=== PATIENT | male | born 1940 | race Caucasian/White ===

== ENCOUNTER 2021-09-26 09:58 | Day surgery (SDC) | payer MEDICARE, OTHER ==
[2021-09-26] VITALS (10 sets, daily range): BP systolic 98–135; BP diastolic 50–70
[~2021-09-26] VITALS: Ht 170.2 cm; Wt 76.7 kg
[~2021-09-26 09:58] MED LIST: AMLO2.5T2 PO; ASPI-611 PO; ATOR80TA PO; BENA10TA74 PO; CLOP75TA34 PO
[2021-09-26] MEDS ORDERED: LORazepam 0.5 MG tablet PO PRN (10:25)
[2021-09-26] MEDS ORDERED: normal saline 1,000 ML IV SCH (10:25)
[2021-09-26] MEDS ORDERED: diphenhydrAMINE 25mg capsule PO PRN (10:25)
[2021-09-26] MEDS ORDERED: LIDOcaine/PRILOcaine 5gm cream TP ONE (12:00)
[2021-09-26] MEDS ORDERED: LIDOcaine 1% (10mg/ml)w/preservative injection 20ml MDV ONE (12:03)
[2021-09-26] MEDS ORDERED: midazolam 1 mg/ML 2ml injection ONE (12:03)
[2021-09-26] MEDS ORDERED: fentaNYL/PF 50MCG/1 ML 2ML syringe ONE (12:03)
[2021-09-26] MEDS ORDERED: verapamil 2.5 mg/ml inj IV ONE (12:03)
[2021-09-26] MEDS ORDERED: nitroGLYCERIN-Tridil 50MG/D5W 250 ML IV ONE (12:04)
[2021-09-26] MEDS ORDERED: heparin 1,000unit/ml 10ml vial 10 ML ONE (12:04)
[2021-09-26] MEDS ORDERED: iohexol 350MG/ML 100ml bottle IV ONE (12:04)
[2021-09-26] MEDS ORDERED: ondansetron/PF 4mg/2ml inj IV PRN (13:30)
[2021-09-26] MEDS ORDERED: OXAZEpam 15mg capsule PO PRN (13:35)
[2021-09-26] MEDS ORDERED: HYDROcodone/acetaminophen 5mg/325mg tablet PO PRN (13:35)
[2021-09-26] MEDS ORDERED: proCHLORperazine 10 MG/2 ml inj IV PRN (13:35)
[2021-09-26] MEDS ORDERED: HYDROcodone/acetaminophen 10/325mg tab PO PRN (13:35)
== END 2021-09-26 16:30 | disposition home or self-care (01) ==
LOC: SSTAY O 09:58
PROVIDERS: ATTEND Internal Medicine Interventional Cardiology
DX: I35.0 Nonrheumatic aortic (valve) stenosis (principal); I25.10 Atherosclerotic heart disease of native coronary artery without angina pectoris; I10 Essential (primary) hypertension; E78.5 Hyperlipidemia, unspecified; Z95.5 Presence of coronary angioplasty implant and graft; Z95.0 Presence of cardiac pacemaker; Z79.82 Long term (current) use of aspirin; Z79.899 Other long term (current) drug therapy; Z87.891 Personal history of nicotine dependence
CPT/HCPCS: 93005; 93454; 99152; C1769; C1894; J1644; J2001; J2250; J3010; J7030; Q0163; Q9967; A4620; A5120; J3490

== ENCOUNTER 2021-11-24 09:49 | Outpatient (CLI) | payer MEDICARE, OTHER ==
[~2021-11-24 09:49] MED LIST changes: -CLOP75TA34 PO
[2021-11-24 11:15] LABS: BASOPHILS % (AUTO) 0.5 % (0-1); EOSINOPHILS # (AUTO) 0.1 X10'3 (0-0.9); EOSINOPHILS % (AUTO) 1.1 % (0-6); HEMATOCRIT 38.4 % (42.0-52.0); HEMOGLOBIN 13.3 g/dl (14.0-17.9); MEAN CORPUSCULAR HEMOGLOBIN 32.2 PG (27.0-31.0); MEAN CORPUSCULAR HGB CONC 34.5 g/dL (33.0-36.5); MEAN CORPUSCULAR VOLUME 93.3 FL (78-98); MEAN PLATELET VOLUME 9.1 FL (7.4-10.4); MONOCYTES # (AUTO) 0.4 X10'3 (0-0.9); MONOCYTES % (AUTO) 7.8 % (2-12); NEUTROPHILS # (AUTO) 3.6 X10'3 (1.8-7.7); NEUTROPHILS % (AUTO) 71.6 % (42-75); PLATELET COUNT 223 X10'3 (140-440); RED BLOOD COUNT 4.12 X10'6 (4.70-6.10); RED CELL DISTRIBUTION WIDTH 13.2 % (11.5-14.5); WHITE BLOOD COUNT 5.1 X10'3 (4.5-11.0)
[2021-11-24 11:22] LABS: APTT 27 SECONDS (22-32)
[2021-11-24] MEDS ORDERED: IODIXANOL 320 MG/ML INFUS..BTL 100ML IV ONE (11:27)
[2021-11-24] MEDS ORDERED: IODIXANOL 320 MG/ML INFUS..BTL 50ML IV ONE (11:27)
[2021-11-24 11:31] LABS: ALANINE AMINOTRANSFERASE 28 U/L (12-78); ALBUMIN 3.9 G/DL (3.4-5.0); ALBUMIN/GLOBULIN RATIO 1.1 (1.1-1.5); ALKALINE PHOSPHATASE 59 IU/L (46-116); ANION GAP 6 (8-16); ASPARTATE AMINO TRANSFERASE 21 U/L (10-37); BILIRUBIN,TOTAL 0.6 MG/DL (0.1-1.0); BLOOD UREA NITROGEN 25 MG/DL (7-18); BUN/CREATININE RATIO 28.7 (5.4-32.0); CALCIUM 8.8 MG/DL (8.5-10.1); CHLORIDE 107 MMOL/L (99-107); CREATININE 0.87 MG/DL (0.60-1.10); GLUCOSE 109 MG/DL (70-104); POTASSIUM 4.2 MMOL/L (3.5-5.1); SODIUM 140 MMOL/L (135-145); TOTAL CARBON DIOXIDE 26.7 MMOL/L (24-32); TOTAL PROTEIN 7.3 G/DL (6.4-8.2); eGFR 84 ML/MIN
== END 2021-11-24 23:59 | disposition home or self-care (01) ==
LOC: RAD 09:49
PROVIDERS: ATTEND Internal Medicine Cardiovascular Disease
DX: I35.0 Nonrheumatic aortic (valve) stenosis (principal); I25.10 Atherosclerotic heart disease of native coronary artery without angina pectoris; K44.9 Diaphragmatic hernia without obstruction or gangrene; K57.30 Diverticulosis of large intestine without perforation or abscess without bleeding; K57.10 Diverticulosis of small intestine without perforation or abscess without bleeding; I65.29 Occlusion and stenosis of unspecified carotid artery; I70.0 Atherosclerosis of aorta; J98.11 Atelectasis; J98.4 Other disorders of lung; M47.816 Spondylosis without myelopathy or radiculopathy, lumbar region; M85.88 Other specified disorders of bone density and structure, other site; Z20.822 Contact with and (suspected) exposure to COVID-19
CPT/HCPCS: 36415; 71046; 71275; 74174; 80053; 85025; 85610; 85730; 87635; 94010; 94727; 94729; C9803; Q9967

== ENCOUNTER 2023-07-16 11:27 | Day surgery (SDC) | payer MEDICARE, OTHER ==
[2023-07-16] VITALS (9 sets, daily range): BP systolic 101–154; BP diastolic 50–67; PULSE 60–69; RESP 12–15; TEMP 98.7; O2SAT 93–98
[~2023-07-16] VITALS: Ht 170.2 cm; Wt 79.9 kg
[~2023-07-16 11:27] MED LIST changes: +LIDOcaine 1% (10mg/ml) 2ml vial ONE; +heparin 1,000unit/ml 10ml vial 10 ML ONE; +iohexol 350MG/ML 100ml bottle IV ONE; +nitroGLYCERIN 500mcg/5mL D5W 5 ML IV ONE; +verapamil 2.5 mg/ml inj IV ONE
[2023-07-16] MEDS ORDERED: midazolam 1 mg/ML 2ml injection ONE (11:40)
[2023-07-16] MEDS ORDERED: fentaNYL/PF 50MCG/1 ML 2ML syringe ONE (11:41)
[2023-07-16] MEDS ORDERED: LORazepam 0.5 MG tablet PO PRN (11:45)
[2023-07-16] MEDS ORDERED: normal saline 1,000 ML IV SCH (11:45)
[2023-07-16] MEDS ORDERED: diphenhydrAMINE 25mg capsule PO PRN (11:45)
[2023-07-16] MEDS ORDERED: LIDOcaine 1% (10mg/ml) 2ml vial ONE (11:57)
[2023-07-16] MEDS ORDERED: HYDROcodone/acetaminophen 10/325mg tab PO PRN (14:15)
[2023-07-16] MEDS ORDERED: HYDROcodone/acetaminophen 5mg/325mg tablet PO PRN (14:15)
[2023-07-16 15:18] LABS: ISTAT HGB ART 10.9 g/dl (14.0-17.9); ISTAT HGB MIX 11.2 g/dl (14.0-17.9); ISTAT Hct ART 32 %PCV (42-52); ISTAT Hct MIX 33 %PCV (42-52); ISTAT O2 SATURATION ARTERIAL 95 % (95-98); ISTAT O2 SATURATION MIX VENOUS 69 % (60-80); ISTAT SOURCE BLNK
== END 2023-07-16 16:40 | disposition home or self-care (01) ==
LOC: SSTAY O 11:27
PROVIDERS: ATTEND Student in an Organized Health Care Education/Training Program
DX: I35.0 Nonrheumatic aortic (valve) stenosis (principal); T82.855A Stenosis of coronary artery stent, initial encounter; I25.10 Atherosclerotic heart disease of native coronary artery without angina pectoris; E78.5 Hyperlipidemia, unspecified; I10 Essential (primary) hypertension; I65.29 Occlusion and stenosis of unspecified carotid artery; Z95.0 Presence of cardiac pacemaker; Z79.82 Long term (current) use of aspirin; Z79.899 Other long term (current) drug therapy; Y84.0 Cardiac catheterization as the cause of abnormal reaction of the patient, or of later complication, without mention of misadventure at the time of the procedure; Y92.89 Other specified places as the place of occurrence of the external cause
CPT/HCPCS: 82803; 85014; 93005; 93456; 99152; A6258; J1644; J2250; J3010; J3490; Q0163; Q9967; A6402; C1751; C1894

== ENCOUNTER 2023-09-19 05:58 | Inpatient (IN) | payer MEDICARE, OTHER ==
[2023-09-12 15:05] LABS: BASOPHILS % (AUTO) 0.6 % (0-1); EOSINOPHILS % (AUTO) 0.8 % (0-6); LYMPHOCYTES # (AUTO) 1.2 X10'3 (1.1-4.8); LYMPHOCYTES % (AUTO) 22.4 % (21-51); MEAN CORPUSCULAR HEMOGLOBIN 31.7 PG (27.0-31.0); MEAN CORPUSCULAR HGB CONC 34.4 g/dL (33.0-36.5); MEAN CORPUSCULAR VOLUME 92.3 FL (78-98); MONOCYTES # (AUTO) 0.3 X10'3 (0-0.9); MONOCYTES % (AUTO) 6.5 % (2-12); NEUTROPHILS # (AUTO) 3.6 X10'3 (1.8-7.7); NEUTROPHILS % (AUTO) 69.7 % (42-75); PRE OP HEMATOCRIT 38.6 % (42.0-52.0); PRE OP HEMOGLOBIN 13.3 g/dL (14.0-17.9); PRE OP PLATELET COUNT 210 X10'3 (140-440); PRE OP WHITE BLOOD COUNT 5.2 10'3 (4.8-10.8); RED BLOOD COUNT 4.18 X10'6 (4.70-6.10); RED CELL DISTRIBUTION WIDTH 13.7 % (11.5-14.5)
[2023-09-12 15:06] LABS: BILIRUBIN,URINE NEGATIVE (Neg); CLARITY,URINE CLEAR (Clear); COLOR,URINE YELLOW (Yellow); GLUCOSE, URINE NEGATIVE (Neg); KETONES,URINE NEGATIVE (Neg); LEUKOCYTE ESTERASE ,URINE NEGATIVE (Neg); NITRITES, URINE NEGATIVE (Neg); OCCULT BLOOD,URINE NEGATIVE (Neg); PH,URINE 5.5 (4.8-8.0); PRE OP PROTIME 10.5 SECONDS (9.0-12.0); PROTEIN,URINE NEGATIVE (Neg); UROBILINOGEN,URINE 0.2 E.U/dL (0.2-1.0)
[2023-09-12 15:18] LABS: UA COLLECTION TYPE CLN CATCH MIDSTREAM
[2023-09-12 15:22] LABS: ALBUMIN 4.2 G/DL (3.4-5.0); ALBUMIN/GLOBULIN RATIO 1.2 (1.1-1.5); ALKALINE PHOSPHATASE 69 IU/L (46-116); BLOOD UREA NITROGEN 23 MG/DL (7-18); BUN/CREATININE RATIO 23.2 (10.0-20.0); CALCIUM 9.3 MG/DL (8.5-10.1); CHLORIDE 105 MMOL/L (99-107); CREATININE 0.99 MG/DL (0.60-1.10); PRE OP ALT 21 U/L (30-65); PRE OP ANION GAP 9 (8-16); PRE OP AST 29 U/L (10-37); PRE OP BILIRUB, TOTAL 0.9 MG/DL (0.0-1.0); PRE OP GLUCOSE 104 MG/DL (70-104); PRE OP SODIUM 139 MMOL/L (135-145); TOTAL PROTEIN 7.7 G/DL (6.4-8.2); eGFR 72 ML/MIN
[2023-09-19] VITALS (39 sets, daily range): BP systolic 60–156; BP diastolic 32–83; PULSE 60–68; RESP 10–22; TEMP 97.1–97.7; O2SAT 93–99
[~2023-09-19] VITALS: Ht 170.2 cm; Wt 79.6 kg
[~2023-09-19 05:58] MED LIST changes: +Insulin Reg/NS 100units/100mL 100 ML IV SCH; -LIDOcaine 1% (10mg/ml) 2ml vial ONE; +aspirin 325mg tablet PO ONE; +cefazolin 2gm/D5W 100mL 100 ML IV ONE; +famotidine 20mg tablet PO ONE; -heparin 1,000unit/ml 10ml vial 10 ML ONE; -iohexol 350MG/ML 100ml bottle IV ONE; -nitroGLYCERIN 500mcg/5mL D5W 5 ML IV ONE; +ondansetron 4mg rapidly disintigrating tab PO PRN; +ringers solution, lacted 1,000 ML IV SCH; +vancomycin 1,500 MG in NS 300ml IV soln IV ONE; -verapamil 2.5 mg/ml inj IV ONE
[2023-09-19] MEDS ORDERED: protamine sulfate 10mg/ml inj. ONE (06:58)
[2023-09-19] MEDS ORDERED: phenylephrine inj 50 MG in normal saline 250ml IV solN IV SCH (07:40)
[2023-09-19] MEDS ORDERED: nitroPRUSSIDE (NIPRIDE) (200MCG/ML) 100ML Drip IV SCH (07:40)
[2023-09-19] MEDS ORDERED: protamine sulf. 10mg/ml inj. IV ONE (08:30)
[2023-09-19] MEDS ORDERED: LIDOcaine 1% (10mg/ml) 2ml vial ONE (08:30)
[2023-09-19] MEDS ORDERED: midazolam 1 mg/ML 2ml injection ONE (08:38)
[2023-09-19] MEDS ORDERED: LIDOcaine 1% (10mg/ml)w/preservative inj. 20ml MDV ONE (08:39)
[2023-09-19] MEDS ORDERED: iohexol 350MG/ML 100ml bottle IV ONE (08:39)
[2023-09-19] MEDS ORDERED: heparin 1,000 UNITS/NS 500ml 1,500 ML ONE (08:39)
[2023-09-19] MEDS ORDERED: REMIFENTANIL (Ultiva) 1 MG VIAL IV ONE (09:03)
[2023-09-19] MEDS ORDERED: heparin 1,000 units/ml 10ml inj ONE (09:03)
[2023-09-19] MEDS ORDERED: LIDOcaine 2% (20mg/ml) 5ml vial ONE (09:15)
[2023-09-19] MEDS ORDERED: propofol inj 20 ML IV ONE (09:15)
[2023-09-19] MEDS ORDERED: pantoprazole 40mg Tablet.DR PO PRN (10:15)
[2023-09-19] MEDS ORDERED: labetalol 20mg/4ml (5mg/ml) syringe IV PRN (10:15)
[2023-09-19] MEDS ORDERED: HYDROcodone/acetaminophen 5mg/325mg tablet PO PRN (10:15)
[2023-09-19] MEDS ORDERED: potassium Cl 40MEQ/1/2NS 520ml 520 ML IV PRN (10:15)
[2023-09-19] MEDS ORDERED: ondansetron/PF 4mg/2ml inj IV PRN (10:15)
[2023-09-19] MEDS ORDERED: normal saline 1000ml 1,000 ML IV SCH (10:15)
[2023-09-19] MEDS ORDERED: acetaminophen 325mg tablet PO PRN (10:15)
[2023-09-19] MEDS ORDERED: magnesium 2GM in 50ml NS 50 ML IV PRN (10:15)
[2023-09-19] MEDS ORDERED: hydrALAZINE 20mg/ml inj. IV PRN (10:15)
[2023-09-19] MEDS ORDERED: docusate sod 100mg capsule PO PRN (10:15)
[2023-09-19] MEDS ORDERED: proCHLORperazine 10 MG/2 ml inj IV PRN (10:15)
[2023-09-19] MEDS ORDERED: magnesium 4gm in 100ml NS 100 ML IV PRN (10:15)
[2023-09-19] MEDS ORDERED: potassium CL 10mEq/100ml bag 100 ML IV PRN (10:15)
[2023-09-19] MEDS ORDERED: potassium Cl 20 mEq SR tablet PO PRN (10:15)
[2023-09-19] MEDS ORDERED: potassium Cl 20mEq/100mL bag 100 ML IV PRN (10:15)
[2023-09-19] MEDS ORDERED: potassium Cl 40MEQ/270ML bag 250 ML IV PRN (10:15)
[2023-09-19] MEDS ORDERED: diphenhydrAMINE 25mg capsule PO PRN (10:15)
[2023-09-19] MEDS ORDERED: ALPRAZolam 0.25mg tablet PO PRN (10:15)
--- NOTE | 2023-09-19 10:28 | NUR ---
Received from OR via BED, accompanied by Anesthesiologist DR. COLBERT and report given by Anesthesiologist AND OR NURSE. PT ARRIVED DROWSY BUT ABLE TO RESPOND TO VERBAL STIMULI ON RA. PT HAS 20 G IV TO RIGHT FOREARM AND ART LINE TO LEFT RADIAL WRIST. PT HAS DRESSING TO R AND L GROIN THAT IS C/D/I, NO SWELLING OR BLEEDING NOTED. NEURO ASSESSMENT COMPLETED. PUSH, PULL, PRODUCTION WOOD CRAFTSMAN, SMILE ALL WITHIN NORMAL LIMITS. BILATERAL PEDAL PULSES STRONG. VSS. WILL CONTINUE TO ASSESS.
--- NOTE | 2023-09-19 13:28 | NUR ---
PATIENT HAS MET ALL CRITERIA FOR TRANSFER TO THE PCU FLOOR. VSS. DRESSINGS INTACT. BED LOW, CALL LIGHT PRESENT AND 2 RAILS UP. RN PRESENT TO ACCEPT CARE OF PATIENT AND REPORT HAS BEEN CALLED. ALL QUESTIONS ANSWERED TO ACCEPTING MELINDA MONTOYA. ATTACHED TO TELE MONITOR WITH BP AND SPO2. SON, ALEKS AT BEDSIDE. ALL BELONGINGS PRESENT. TRANSFERRED TO 3024B.
--- NOTE | 2023-09-19 14:55 | NUR ---
performing hourly rounding on patient. was assessing pulses while he was finishing up using the urinal. when he brought urinal out from under blankets, it was covered in blood. yelled out for help and immediately applied pressure one inch above the right groin site. cycled his blood pressure and it was steady in the 150's. dr gil, icu charge, and maintenance shop laborer notified. they were on the way in a few minutes. while continuing to hold manual pressure as ordered by dr gil, patient suddenly developed nausea, he was hot, and did not feel good. cycled bp was 60/38. crash cart brought in and dr gil again notified. new iv placed and other one infiltrated, bolus started, and team showed up at bedside - concerns for bleeding expressed by md, cbc came back normal. groin site reopened at that time after holding pressure for 30 minutes and md held manual pressure for another 30 minutes. hindsight shows pt possible vasovagled down from too much manual pressure. all vss wnl and patient is currently resting. dr gil applied a sand bag and patient will be closely watched. dr gil will be coming back and rounding on patient in a bit.
[2023-09-19] MEDS ORDERED: sod chloride 0.9% 10ml flush syringe IV SCH (16:00)
[2023-09-19 16:08] LABS: HEMATOCRIT 34.7 % (42.0-52.0); MEAN CORPUSCULAR HGB CONC 34.5 g/dL (33.0-36.5); MEAN CORPUSCULAR VOLUME 92.6 FL (78-98); PLATELET COUNT 152 X10'3 (140-440); RED BLOOD COUNT 3.75 X10'6 (4.70-6.10); RED CELL DISTRIBUTION WIDTH 13.8 % (11.5-14.5)
[2023-09-19] MEDS: ceFAZolin 1GM/D5W- ADD-VANTAGE 50 ML IV SCH ×3 (19:00→23:46)
[2023-09-19] MEDS: vancomycin/NS 1 GM ADD-VANTAGE 250 ML IV SCH (20:00)
[2023-09-19] MEDS ORDERED: lisinopril 10 MG tablet PO SCH (21:00)
[2023-09-19] MEDS ORDERED: aspirin 81mg, enteric-coated 1 TAB TABLET.DR PO SCH (21:00)
[2023-09-19] MEDS ORDERED: atorvastatin 20mg tablet PO SCH (21:00)
[2023-09-19] MEDS ORDERED: amLODIPine 5mg tablet PO SCH (21:00)
[2023-09-20] VITALS: BP 112/50; PULSE 60
[2023-09-20 02:00] VITALS: BP 127/54; PULSE 59; RESP 16; TEMP 97.8; O2SAT 97
[2023-09-20 06:00] VITALS: BP 118/49; PULSE 65; RESP 24; TEMP 98.3; O2SAT 96
--- NOTE | 2023-09-20 06:43 | NUR ---
Patient report given, questions answered & plan of care reviewed with MELINDA Suh
[2023-09-20] MEDS: vancomycin/NS 1 GM ADD-VANTAGE 250 ML IV SCH (07:22)
[2023-09-20] MEDS: ceFAZolin 1GM/D5W- ADD-VANTAGE 50 ML IV SCH (07:22)
[2023-09-20 07:54] LABS: BASOPHILS % (AUTO) 0.2 % (0-1); EOSINOPHILS % (AUTO) 0.2 % (0-6); HEMATOCRIT 30.7 % (42.0-52.0); HEMOGLOBIN 10.7 g/dl (14.0-17.9); LYMPHOCYTES # (AUTO) 0.6 X10'3 (1.1-4.8); LYMPHOCYTES % (AUTO) 8.5 % (21-51); MEAN CORPUSCULAR HEMOGLOBIN 32.2 PG (27.0-31.0); MEAN CORPUSCULAR HGB CONC 34.8 g/dL (33.0-36.5); MEAN CORPUSCULAR VOLUME 92.7 FL (78-98); MEAN PLATELET VOLUME 9.3 FL (7.4-10.4); MONOCYTES # (AUTO) 0.7 X10'3 (0-0.9); MONOCYTES % (AUTO) 8.9 % (2-12); NEUTROPHILS # (AUTO) 6.1 X10'3 (1.8-7.7); NEUTROPHILS % (AUTO) 82.2 % (42-75); PLATELET COUNT 128 X10'3 (140-440); RED BLOOD COUNT 3.31 X10'6 (4.70-6.10); RED CELL DISTRIBUTION WIDTH 13.7 % (11.5-14.5); WHITE BLOOD COUNT 7.4 X10'3 (4.5-11.0)
[2023-09-20 08:18] LABS: ALANINE AMINOTRANSFERASE 16 U/L (12-78); ALBUMIN 2.9 G/DL (3.4-5.0); ALKALINE PHOSPHATASE 49 IU/L (46-116); ANION GAP 8 (8-16); ASPARTATE AMINO TRANSFERASE 19 U/L (10-37); BILIRUBIN,TOTAL 0.8 MG/DL (0.1-1.0); BLOOD UREA NITROGEN 19 MG/DL (7-18); BUN/CREATININE RATIO 17.1 (10.0-20.0); CHLORIDE 106 MMOL/L (99-107); CREATININE 1.11 MG/DL (0.60-1.10); GLUCOSE 126 MG/DL (70-104); MAGNESIUM 1.9 MG/DL (1.5-2.4); POTASSIUM 3.5 MMOL/L (3.5-5.1); PRO BRAIN NATRIURETIC PEPTIDE 464 PG/ML (0-450); SODIUM 138 MMOL/L (135-145); TOTAL CARBON DIOXIDE 24.5 MMOL/L (24-32); TOTAL PROTEIN 5.7 G/DL (6.4-8.2); eCRCL 46 ML/MIN; eGFR 63 ML/MIN
[2023-09-20] MEDS ORDERED: aspirin 81mg tab.chew PO SCH (08:30)
--- NOTE | 2023-09-20 09:45 | NUR ---
Pt ambulated around unit 300 ft. pt very steady on his feet. no dizziness, sob or pain noted. pt states "it feels so good to walk".
[2023-09-20 11:00] VITALS: BP 123/53; PULSE 63; RESP 16; TEMP 98.1; O2SAT 96
[2023-09-20 15:00] VITALS: BP 110/46; PULSE 71; RESP 12; TEMP 98.1; O2SAT 96
--- NOTE | 2023-09-20 15:30 | NUR ---
Discharge instructions discussed with patient. 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 All questions answered. Pt states he understands all instructions. Pt will be staying with his son for a week before going home where he lives alone. Pt will leave unit via wheelchair to private car. Removed PIV and gambling monitor.
== END 2023-09-20 15:51 | disposition home or self-care (01) | DRG 266 ==
LOC: PAS IN 05:58 → EDSTATUS 08:30 → PCU 3S 13:20 → SUR 3N 09-20 12:38 → PCU 3S 09-20 12:39
PROVIDERS: ADMIT Internal Medicine Cardiovascular Disease; ATTEND Internal Medicine Cardiovascular Disease
PROC: B41G1ZZ Fluoroscopy of Left Lower Extremity Arteries using Low Osmolar Contrast (ICD-10-PCS; 2023-09-19)
PROC: B41F1ZZ Fluoroscopy of Right Lower Extremity Arteries using Low Osmolar Contrast (ICD-10-PCS; 2023-09-19)
PROC: B3101ZZ Fluoroscopy of Thoracic Aorta using Low Osmolar Contrast (ICD-10-PCS; 2023-09-19)
PROC: 5A1223Z Performance of Cardiac Pacing, Continuous (ICD-10-PCS; 2023-09-19)
PROC: 02RF38N Replacement of Aortic Valve with Zooplastic Tissue, using Rapid Deployment Technique, Percutaneous Approach (ICD-10-PCS; principal; 2023-09-19 09:03)
DX: I35.0 Nonrheumatic aortic (valve) stenosis (principal); Z00.6 Encounter for examination for normal comparison and control in clinical research program; I50.33 Acute on chronic diastolic (congestive) heart failure; I11.0 Hypertensive heart disease with heart failure; E78.5 Hyperlipidemia, unspecified; Z95.2 Presence of prosthetic heart valve
CPT/HCPCS: 33361; 36415; 71045; 71046; 76937; 80053; 81003; 82948; 83735; 83880; 85025; 85027; 85347; 85610; 85730; 86885; 86900; 86901; 86920; 87081; 93005; 93308; 94760; 94799; A4618; A6258; A6449; C1756; C1760; C1769; C1894; G0378; J0690; J1644; J1815; J2250; J2370; J2704; J2720; J3370; J3490; J7030; J7040; J7050; J7120; Q9967